=== PATIENT | female | born 1975 ===

== ENCOUNTER → 2022-05-05 | Outpatient (CLI) | payer OTHER | END | disposition home or self-care (01) | LOC: SONOGRAMA 12:19 | PROVIDERS: ATTEND Urology | DX: R31.29 Other microscopic hematuria (principal) ==

== ENCOUNTER 2023-01-04 17:51 | Emergency (ER) | payer OTHER ==
[~2023-01-04] VITALS: Ht 170.2 cm; Wt 107.0 kg
== END 2023-01-04 21:59 | disposition home or self-care (01) ==
LOC: ER 17:51
DX: J06.9 Acute upper respiratory infection, unspecified (principal); Z20.822 Contact with and (suspected) exposure to COVID-19

== ENCOUNTER 2023-11-15 07:56 | Outpatient (CLI) | payer OTHER | END 2023-11-15 08:13 | disposition home or self-care (01) | LOC: RAD 07:56 | PROVIDERS: ATTEND Obstetrics & Gynecology | DX: R05.9 Cough, unspecified (principal) ==